=== PATIENT | female | born 1990 | race American Indian/Alaskan Native ===

== ENCOUNTER 2017-05-07 23:36 | Emergency (ER) | payer SELFPAY ==
--- NOTE | 2017-05-08 02:00 | Emergency Department Report ---
- General Chief Complaint: Upper Respiratory Infection Stated Complaint: COUGHING, CONGESTION Time Seen by Provider: 05/08/17 01:04 Source: patient Mode of arrival: Ambulatory Limitations: No Limitations - History of Present Illness Initial Comments: Patient states that she has had nasal congestion, dry cough (that was initially productive) that is worse when laying down and sneezing for the past month; 3 weeks ago, she had lost her voice and was treated for laryngitis with amoxicillin (which she didn't complete because it made her itch) and 3 days of steroids; denies fevers for the last 3 weeks, SOB and wheezing MD Complaint: cough, nasal congestion -: week(s) (4) Associated Symptoms: nasal congestion, cough. denies: fever, chills, myalgias, diaphoresis, headache, rhinorrhea, stiff neck, chest pain, shortness of breath, abdominal pain, nausea, vomiting, diarrhea, dysuria, rash, confusion, right sweats, weight loss, epistaxis, hoarseness, ear pain Treatments Prior to Arrival: antibiotics - Related Data Previous Rx's Medication Instructions Recorded Last Taken Type Guaifenesin/Pseudoephedrne HCl 1 each PO BID #10 tab 05/08/17 Unknown Rx [Mucinex D ER 600-60 mg Tablet] Loratadine 10 mg PO QDAY PRN #30 tablet 05/08/17 Unknown Rx Prednisone 50 mg PO QDAY #5 tablet 05/08/17 Unknown Rx Allergies Allergy/AdvReac Type Severity Reaction Status Date / Time No Known Allergies Allergy Unverified 05/08/17 00:01 ED Review of Systems ROS: Stated complaint: COUGHING, CONGESTION Other details as noted in HPI Constitutional: denies: chills, diaphoresis, fever, malaise, weakness Eyes: denies: eye discharge ENT: congestion. denies: ear pain, throat pain, epistaxis Respiratory: cough. denies: shortness of breath, SOB with exertion, SOB at rest , stridor, wheezing Cardiovascular: denies: chest pain, palpitations Gastrointestinal: denies: abdominal pain, nausea, vomiting, diarrhea Musculoskeletal: denies: myalgia Skin: denies: rash Neurological: denies: headache, weakness ED Past Medical Hx - Past Medical History Previous Medical History?: No - Surgical History Past Surgical History?: No - Social History Smoking Status: Never Smoker Substance Use Type: Marijuana - Medications Home Medications: Home Medications Medication Instructions Recorded Confirmed Last Taken Type Guaifenesin/Pseudoephedrne HCl 1 each PO BID #10 tab 05/08/17 Unknown Rx [Mucinex D ER 600-60 mg Tablet] Loratadine 10 mg PO QDAY PRN #30 tablet 05/08/17 Unknown Rx Prednisone 50 mg PO QDAY #5 tablet 05/08/17 Unknown Rx ED Physical Exam - General Limitations: No Limitations General appearance: alert, in no apparent distress - Head Head exam: Present: atraumatic, normocephalic, normal inspection - Eye Eye exam: Present: normal appearance, PERRL, EOMI. Absent: conjunctival injection Pupils: Present: normal accommodation - ENT ENT exam: Present: mucous membranes moist, TM's normal bilaterally, normal external ear exam, other (Nose - bilateral mucosal edema; no sinus tenderness). Absent: normal orophraynx (mild erythema) - Neck Neck exam: Present: normal inspection, full ROM. Absent: tenderness, lymphadenopathy - Respiratory Respiratory exam: Present: normal lung sounds bilaterally. Absent: respiratory distress, wheezes, rales, rhonchi, stridor, decreased breath sounds - Cardiovascular Cardiovascular Exam: Present: regular rate, normal rhythm, normal heart sounds - Neurological Exam Neurological exam: Present: alert, oriented X3, normal gait - Psychiatric Psychiatric exam: Present: normal affect, normal mood - Skin Skin exam: Present: warm, dry, intact, normal color. Absent: rash ED Course Vital Signs 05/07/17 05/08/17 23:39 00:02 Temperature 98.2 F 98.2 F Pulse Rate 98 H 75 Respiratory 18 18 Rate Blood Pressure 122/79 Blood Pressure 122/79 [Right] O2 Sat by Pulse 98 99 Oximetry ED Medical Decision Making - Medical Decision Making Discussed results with patient, told her to drink plenty of fluids, complete steroids, follow up with PCP if sxs don't improve, she verbalized understanding Critical care attestation.: If time is entered above; I have spent that time in minutes in the direct care of this critically ill patient, excluding procedure time. ED Disposition Clinical Impression: Hay fever Upper respiratory infection Qualifiers: URI type: unspecified viral URI Qualified Code(s): J06.9 - Acute upper respiratory infection, unspecified Disposition: TO HOME OR SELFCARE Is pt being admited?: No Condition: Stable Instructions: Upper Respiratory Infection (ED), Allergic Rhinitis (ED) Prescriptions: Guaifenesin/Pseudoephedrne HCl [Mucinex D ER 600-60 mg Tablet] 1 each PO BID # 10 tab Loratadine 10 mg PO QDAY PRN #30 tablet PRN Reason: Allergy Symptoms Prednisone 50 mg PO QDAY #5 tablet Referrals: PRIMARY CARE, [Primary Care Provider] - 3-5 Days
--- NOTE | 2017-05-08 02:16 | XRay Report ---
FINAL REPORT EXAM: XR CHEST ROUTINE 2V HISTORY: Cough TECHNIQUE: PA and lateral views of the chest were submitted. FINDINGS: Heart size mediastinum appear normal. The lungs are clear. The bones and soft tissues are well maintained. IMPRESSION: Normal chest.
[2017-05-08 02:25] VITALS: BP 119/74
== END 2017-05-08 02:25 | disposition home or self-care (01) ==
LOC: ED 23:36
DX: J06.9 Acute upper respiratory infection, unspecified (principal); J30.1 Allergic rhinitis due to pollen; F12.10 Cannabis abuse, uncomplicated
CPT/HCPCS: 71020; 99283

== ENCOUNTER 2021-10-13 09:38 | Emergency (ER) | payer SELFPAY ==
[2021-10-13 10:02] VITALS: BP 111/71
--- NOTE | 2021-10-13 11:50 | XRay Report ---
RIGHT WRIST 3 VIEWS INDICATION: trauma. COMPARISON: None. IMPRESSION: Widening of the scapholunate interval is suspected concerning for scapholunate lunate li gament injury. The chronicity of this is unclear on x-ray. No acute osseous abnormality or significan t degenerative changes. The soft tissues are unremarkable. This could be fully evaluated with [facility] t wrist arthrogram if needed. Signer Name: Aric Stanford Jr, MD Signed: 10/13/2021 11:46 AM Workstation Name: [id number]
--- NOTE | 2021-10-13 12:16 | Emergency Department Report ---
ED Upper Extremity Inj HPI - General Chief Complaint: Extremity Injury, Upper Stated Complaint: PAIN IN WRIST Time Seen by Provider: 10/13/21 11:56 Source: patient Mode of arrival: Ambulatory Limitations: No Limitations - History of Present Illness Initial Comments: 30-year-old black female with no past medical history presents to the emergency department for evaluation of right wrist pain. She states that last night she put pressure on her right wrist and has been having pain since then. She denies any injury. She states that when she pressed down on it last night it felt like it gave out. Complaint: Injury to:: right, wrist -: Sudden, Last night Other Extremity Injury: Wrist: Right Other Injuries: none Severity scale (0 -10): 9 (Pain only with movement.) Worsens With: movement of extremity Associated Symptoms: denies: weakness, numbness, neck pain, suspects foreign body, nausea/vomiting, heard/felt popping sensat - Related Data Previous Rx's Medication Instructions Recorded Last Taken Type Guaifenesin/Pseudoephedrne HCl 1 each PO BID #10 tab 05/08/17 Unknown Rx [Mucinex D ER 600-60 mg Tablet] Loratadine 10 mg PO QDAY PRN #30 tablet 05/08/17 Unknown Rx predniSONE [Prednisone] 50 mg PO QDAY #5 tablet 05/08/17 Unknown Rx Naproxen [Naprosyn] 500 mg PO BID #14 tab 10/13/21 Unknown Rx Allergies Allergy/AdvReac Type Severity Reaction Status Date / Time No Known Allergies Allergy Unverified 10/13/21 10:02 ED Review of Systems ROS: Stated complaint: PAIN IN WRIST Other details as noted in HPI Comment: All other systems reviewed and negative Constitutional: denies: chills, fever Respiratory: denies: shortness of breath Cardiovascular: denies: chest pain, palpitations Gastrointestinal: denies: abdominal pain, nausea, vomiting Musculoskeletal: denies: back pain Neurological: denies: headache, weakness ED Past Medical Hx - Past Medical History Previous Medical History?: No - Surgical History Past Surgical History?: No - Social History Smoking Status: Heavy Tobacco Smoker Substance Use Type: Alcohol - Medications Home Medications: Home Medications Medication Instructions Recorded Confirmed Last Taken Type Guaifenesin/Pseudoephedrne HCl 1 each PO BID #10 tab 05/08/17 Unknown Rx [Mucinex D ER 600-60 mg Tablet] Loratadine 10 mg PO QDAY PRN #30 tablet 05/08/17 Unknown Rx predniSONE [Prednisone] 50 mg PO QDAY #5 tablet 05/08/17 Unknown Rx Naproxen [Naprosyn] 500 mg PO BID #14 tab 10/13/21 Unknown Rx ED Physical Exam - General Limitations: No Limitations General appearance: alert, in no apparent distress - Head Head exam: Present: atraumatic, normocephalic - Eye Eye exam: Present: normal appearance. Absent: conjunctival injection - Neck Neck exam: Present: normal inspection - Respiratory Respiratory exam: Absent: respiratory distress - Cardiovascular Cardiovascular Exam: Present: regular rate - GI/Abdominal GI/Abdominal exam: Absent: distended - Expanded Upper Extremity Exam Right General: Present: normal inspection Forearm Wrist exam: Present: normal inspection, full ROM, tenderness (With movement only). Absent: swelling, abrasion, laceration, ecchymosis, deformity, crepidus, dislocation, erythema, tenderness over anatomical snuff box Neuro motor exam: Present: wrist extension intact, thumb opposition intact, thumb IP flexion intact, thumb adduction intact, fingers 2-5 abduction intact Neurosensory exam: Present: radial nerve intact Vascular: Present: normal capillary refill. Absent: vascular compromise, Pallo, pulse deficit radial art - Back Exam Back exam: Present: normal inspection - Neurological Exam Neurological exam: Present: alert, oriented X3 - Psychiatric Psychiatric exam: Present: normal affect, normal mood - Skin Skin exam: Present: warm, dry, intact, normal color ED Course Vital Signs 10/13/21 10:00 Temperature 98.5 F Pulse Rate 75 Respiratory 18 Rate Blood Pressure 111/71 O2 Sat by Pulse 100 Oximetry ED Medical Decision Making - Radiology Data Radiology results: report reviewed, image reviewed Right wrist x-ray: IMPRESSION: Widening of the scapholunate interval is suspected concerning for scapholunate lunate ligament injury. The chronicity of this is unclear on x-ray. No acute osseous abnormality or significant degenerative changes. The soft tissues are unremarkable. This could be fully evaluated with MR right wrist arthrogram if needed. - Medical Decision Making 30-year-old black female with no past medical history presents to the emergency department for evaluation of right wrist pain. She states that last night she put pressure on her right wrist and has been having pain since then. She denies any injury. She states that when she pressed down on it last night it felt like it gave out. X-ray without any acute osseous process but noted to have possible ligament injury. Results reviewed with patient, and she was placed in right wrist Charly wrap which she states made her arm feel better. She will be treated treated with 7-day course of naproxen and advised to follow-up with orthopedic surgeon for further evaluation and management. She was advised that she may need more advanced imaging. She verbalized understanding of and agreement with plan of care. Critical care attestation.: If time is entered above; I have spent that time in minutes in the direct care of this critically ill patient, excluding procedure time. ED Disposition Clinical Impression: Right wrist pain Disposition: 01 HOME / SELF CARE / HOMELESS Is pt being admited?: No Does the pt Need Aspirin: No Condition: Stable Instructions: How to Use Cold Therapy, [id number], Wrist Pain, Adult, [id number] Additional Instructions: Take medications as prescribed. Follow-up with orthopedics for further evaluation and management. Prescriptions: Naproxen [Naprosyn] 500 mg PO BID #14 tab Referrals: HELENA CALERO MD [Primary Care Provider] - 3-5 Days Time of Disposition: 12:19
== END 2021-10-13 13:00 | disposition home or self-care (01) ==
LOC: ED 09:38
DX: M25.531 Pain in right wrist (principal); F17.200 Nicotine dependence, unspecified, uncomplicated; Z72.89 Other problems related to lifestyle
CPT/HCPCS: 99283